=== PATIENT | female | born 1990 | race Caucasian/White ===

== ENCOUNTER 2016-11-03 16:11 | Inpatient (IN) | payer MEDICAID ==
[2016-11-04] MEDS ORDERED: Ampicillin 2 GM in Sodium Chloride 0.9% 100 ML IV ONE (07:56)
[2016-11-04] MEDS: Lactated Ringers 1,000 ML IV SCH ×2 (08:31→16:56)
[2016-11-04] MEDS ORDERED: Oxytocin 10 UNIT in Sodium Chloride 0.9% 1,000 ML IV SCH (08:45)
--- NOTE | 2016-11-04 09:16 | PN ---
DATE SEEN: 11/04/2016 SUBJECTIVE: This is a 26-year-old G4, P3, EDC is 11/09/2016 at 39+ weeks, comes in for induction. All her vital signs are stable. She is afebrile. heart tones are reactive in 130s to 140s. Cervix is 2, 50%, minus 2, head engaged, group B positive. ASSESSMENT: Induction, could be positive. PLAN: Ampicillin per protocol. Pitocin and AROM later if she decides to change the vaginal delivery. /[id number] PE/MODL
[2016-11-04] MEDS: Ampicillin 1 GM in Sodium Chloride 0.9% 50 ML IV SCH ×3 (12:21→21:14)
--- NOTE | 2016-11-04 13:15 | PN ---
DATE SEEN: 11/04/2016 TIME: 1228 hours. SUBJECTIVE: The patient is clover, on Pitocin 14 units at this time. Ampicillin is gone. OBJECTIVE: heart tones 140s and reactive. Cervix is 3, 50%, -2. ASSESSMENT: Induction of labor. Group B positive. PLAN: I did an AROM today, clear fluid, and copious amounts came out. No nuchal cord. Vaginal delivery anticipated. /[id number] PE/MODL
[2016-11-04] MEDS ORDERED: Nalbuphine 10 MG/1 ML Vial IVPUSH PRN ×2 (14:39→16:32)
[2016-11-04] MEDS ORDERED: Non-Formulary Medication 1 Each (Epinephrine [Epipen] 0.3 MG) IM PRN (14:39)
[2016-11-04] MEDS ORDERED: Scopolamine 1.5 MG Transdermal Patch TRDERM ONE (15:42)
[2016-11-04] MEDS ORDERED: Scopolamine 1.5 MG Transdermal Patch ONE (15:45)
[2016-11-04] MEDS ORDERED: fentaNYL 100 MCG/2 ML SDV ITHECAL ONE (15:45)
[2016-11-04] MEDS ORDERED: Ondansetron 4 MG/2 ML SDV IVPUSH ONE (15:45)
[2016-11-04] MEDS ORDERED: Morphine PF 10 MG/10 ML SDV ONE (15:45)
[2016-11-04] MEDS ORDERED: diphenhydrAMINE 50 MG/ML SDV IVPUSH PRN (16:32)
[2016-11-04] MEDS ORDERED: Scopolamine 1.5 MG Transdermal Patch TOP ONE (16:32)
[2016-11-04] MEDS ORDERED: Promethazine 6.25 MG in Sodium Chloride 0.9% 50 ML IV PRN (16:32)
[2016-11-04] MEDS ORDERED: ePHEDrine 50 MG/ML SDV IVPUSH PRN (16:32)
[2016-11-04] MEDS ORDERED: Naltrexone 50 MG Tab PO PRN ×2 (16:32→16:38)
[2016-11-04] MEDS ORDERED: Promethazine 12.5 MG in Sodium Chloride 0.9% 50 ML IV PRN (16:32)
[2016-11-04] MEDS ORDERED: Famotidine/Normal Saline 20 MG in Premix Bag 50 BAG IV PRN (16:32)
[2016-11-04] MEDS ORDERED: Ondansetron 4 MG/2 ML SDV IVPUSH PRN (16:32)
[2016-11-04] MEDS ORDERED: diphenhydrAMINE 50 MG/ML SDV IV PRN (16:32)
[2016-11-04] MEDS ORDERED: Naloxone 0.4 MG/ML SDV IVPUSH PRN (16:32)
[2016-11-04] MEDS ORDERED: Lactated Ringers 500 ML IV SCH ×2 (16:45)
--- NOTE | 2016-11-04 18:18 | PCM.DEL ---
L & D Note - General Info Date of Service: 11/04/16 - Delivery Note Labor: augmented by ARM Delivery Outcome: Livebirth Delivery Mode: Spontaneous Presentation: OA Nuchal cord: reduced (2) Prep: other Anesthesia Type: Intrathecal Amniotic Fluid Description: Clear Episiotomy Type: None Laceration: none Placenta: intact, spontaneous Cord: 3 vessels Resuscitation needed: No [place]: suctioned - Patient Data Vitals - most recent: Last Vital Signs Temp 97.9 F 11/04/16 12:45 Pulse 80 11/04/16 17:05 Resp 20 11/04/16 16:30 BP 123/57 L 11/04/16 17:05 Pulse Ox 100 11/04/16 16:30 Weight - most recent: 123 lb 12.8 oz I&O - last 24 hours: Intake & Output 11/04/16 11/04/16 11/04/16 06:59 14:59 22:59 Output Total 500 Balance -500 Med Orders - Current: Current Medications Acetaminophen/Codeine Phosphate (Tylenol With Codeine No.3 300mg/30mg) 1 tab PO Q4H PRN PRN Reason: Pain (moderate 4-6) Diphenhydramine HCl (Benadryl) 25 mg IVPUSH ASDIRECTED PRN PRN Reason: EXTRAPYRAMIDAL SIDE EFFECTS Diphenhydramine HCl (Benadryl) 25 mg IV ASDIRECTED PRN PRN Reason: PRURITUS Ephedrine Sulfate (Ephedrine Sulfate) 0 mg IVPUSH ASDIRECTED PRN PRN Reason: Hypotension Ampicillin Sodium 1 gm/ Sodium (Chloride) 50 mls @ 100 mls/hr IV Q4H KADE Last Admin: 11/04/16 16:04 Dose: 100 mls/hr Lactated Ringer's (Ringers, Lactated) 1,000 mls @ 125 mls/hr IV ASDIRECTED KADE Last Admin: 11/04/16 16:56 Dose: 125 mls/hr Oxytocin 10 unit/ Sodium (Chloride) 1,001 mls @ 12.01 mls/hr IV TITRATE KADE; 2 MUNITS/MIN PRN Reason: Protocol Last Titration: 11/04/16 14:05 Dose: 14 munits/min, 84.08 mls/hr Famotidine 20 mg/ Premix 50 mls @ 100 mls/hr IV ONETIME PRN PRN Reason: PRURITIS Lactated Ringer's (Ringers, Lactated) 500 mls @ 999 mls/hr IV .SEECOMMENT KADE Lactated Ringer's (Ringers, Lactated) 500 mls @ 999 mls/hr IV .BOLUS KADE Promethazine HCl 6.25 mg/ (Sodium Chloride) 50.25 mls @ 200 mls/hr IV Q4H PRN PRN Reason: Nausea/Vomiting Promethazine HCl 12.5 mg/ (Sodium Chloride) 50.5 mls @ 200 mls/hr IV Q4H PRN PRN Reason: Nausea/Vomiting Ibuprofen (Motrin) 800 mg PO Q8H COUNT INCLUDES THE [facility] Miscellaneous Information (Remove Patch) 1 ea TRDERM ONETIME ONE Stop: 11/05/16 18:01 Nalbuphine HCl (Nubain) 10 mg IVPUSH Q3H PRN PRN Reason: Pain Last Admin: 11/04/16 14:54 Dose: 10 mg Nalbuphine HCl (Nubain) 10 mg IVPUSH Q1H PRN PRN Reason: PRURITUS Naltrexone HCl (Naltrexone) 50 mg PO ASDIRECTED PRN PRN Reason: REVERSAL Ondansetron HCl (Zofran) 4 mg IVPUSH Q4H PRN PRN Reason: Nausea/Vomiting Multivit/Folic Acid/Iron (-U) 1 each PO DAILY COUNT INCLUDES THE [facility] Valacyclovir HCl (Valtrex) 500 mg PO BID KADE Discontinued Medications Ampicillin Sodium 2 gm/ Sodium (Chloride) 100 mls @ 200 mls/hr IV ONETIME ONE Stop: 11/04/16 08:25 Last Admin: 11/04/16 08:33 Dose: 200 mls/hr Naloxone HCl (Narcan) 0.1 mg IVPUSH .SEECOMMENT PRN PRN Reason: Respiratory Depression Stop: 11/04/16 16:33 Naltrexone HCl (Naltrexone) 25 mg PO ASDIRECTED PRN PRN Reason: REVERSAL Scopolamine (Transderm-Scop) 1.5 mg TRDERM ONETIME ONE Stop: 11/04/16 15:43 Last Admin: 11/04/16 15:46 Dose: 1.5 mg Scopolamine (Transderm-Scop) Confirm Administered Dose 1.5 mg .ROUTE .STK-MED ONE Stop: 11/04/16 15:46 Last Admin: 11/04/16 16:17 Dose: Not Given - Problem List & Annotations (1) Vaginal delivery SNOMED Code(s): 355660374 Code(s): O80 - ENCOUNTER FOR FULL-TERM UNCOMPLICATED DELIVERY Status: Acute Current Visit: No - Problem List Review Problem List Initiated/Reviewed/Updated: Yes - My Orders Last 24 Hours: My Active Orders 11/04/16 07:02 Admission Status [Patient Status] [ADT] Routine 11/04/16 08:15 Lactated Ringers [Ringers, Lactated] 1,000 ml IV ASDIRECTED 11/04/16 08:38 Communication Order [RC] ASDIRECTED Communication Order [RC] ASDIRECTED Communication Order [RC] ASDIRECTED Communication Order [RC] ASDIRECTED Notify Provider [RC] PRN Notify Provider [RC] STAT Vital Signs [RC] PER UNIT ROUTINE 11/04/16 08:45 Oxytocin [Pitocin] 10 unit Sodium Chloride 0.9% [Normal Saline] 1,000 ml IV TITRATE 11/04/16 12:00 Ampicillin 1 gm Sodium Chloride 0.9% [Normal Saline] 50 ml IV Q4H 11/04/16 12:32 Admission Status [Patient Status] [ADT] Routine 11/04/16 14:39 Nalbuphine [Nubain] 10 mg IVPUSH Q3H PRN 11/04/16 18:13 Patient Status [ADT] Routine May Shower [RC] ASDIRECTED Up ad Tabby [RC] ASDIRECTED Vital Signs [RC] PFP Acetaminophen/Codeine [Tylenol with Codeine No.3 300MG/30MG] 1 tab PO Q4H PRN Assess Lochia [WOMSER] Per Unit Routine Assess Uterine Involution [WOMSER] Per Unit Routine Breast Pump [WOMSER] Per Unit Routine Resuscitation Status Routine 11/04/16 18:14 Ice Therapy [OM.PC] Per Unit Routine Perineal Care [OM.PC] Per Unit Routine Peripheral IV Discontinue [OM.PC] Routine Sitz Bath [OM.PC] Per Unit Routine 11/04/16 18:15 Ibuprofen [Motrin] 800 mg PO Q8H 11/04/16 21:00 valACYclovir [Valtrex] 500 mg PO BID 11/04/16 Dinner Regular Diet [DIET] 11/05/16 05:11 HEMOGLOBIN/HEMATOCRIT,HH [HEME] AM 11/05/16 09:00 Vit/FA/Fe Fumarate [-U] 1 each PO DAILY 11/05/16 18:00 Remove Patch 1 ea ARISM ONETIME ONE - Plan Plan:: Normal orders. See orders.
[2016-11-04] MEDS: Ibuprofen 800 MG Tab PO SCH (18:28)
[2016-11-04] MEDS ORDERED: valACYclovir 500 MG Tab PO SCH (21:00)
[2016-11-05] MEDS: Ibuprofen 800 MG Tab PO SCH ×3 (02:22→18:00)
--- NOTE | 2016-11-05 08:15 | PCM.PN ---
- General Info Date of Service: 11/05/16 Admission Dx/Problem (Free Text): Mom without concerns. Vaginal bleeding slowing. Functional Status: Reports: pain controlled - Patient Data Vitals - most recent: Last Vital Signs Temp 98.0 F 11/04/16 22:35 Pulse 73 11/04/16 22:35 Resp 16 11/04/16 22:35 BP 96/45 L 11/04/16 22:35 Pulse Ox 98 11/04/16 22:35 Weight - most recent: 123 lb 12.8 oz I&O - last 24 hours: Intake & Output 11/04/16 11/05/16 11/05/16 22:59 06:59 14:59 Intake Total 1000 Balance 1000 Lab Results last 24 hrs: Laboratory Results - last 24 hr 11/05/16 Range/Units 06:40 Hgb 9.7 L (11.5-15.5) g/dL Hct 29.9 L (30.0-51.3) % Med Orders - Current: Current Medications Acetaminophen/Codeine Phosphate (Tylenol With Codeine No.3 300mg/30mg) 1 tab PO Q4H PRN PRN Reason: Pain (moderate 4-6) Diphenhydramine HCl (Benadryl) 25 mg IVPUSH ASDIRECTED PRN PRN Reason: EXTRAPYRAMIDAL SIDE EFFECTS Last Admin: 11/04/16 18:29 Dose: 25 mg Diphenhydramine HCl (Benadryl) 25 mg IV ASDIRECTED PRN PRN Reason: PRURITUS Lactated Ringer's (Ringers, Lactated) 1,000 mls @ 125 mls/hr IV ASDIRECTED KADE Last Admin: 11/04/16 16:56 Dose: 125 mls/hr Famotidine 20 mg/ Premix 50 mls @ 100 mls/hr IV ONETIME PRN PRN Reason: PRURITIS Promethazine HCl 6.25 mg/ (Sodium Chloride) 50.25 mls @ 200 mls/hr IV Q4H PRN PRN Reason: Nausea/Vomiting Promethazine HCl 12.5 mg/ (Sodium Chloride) 50.5 mls @ 200 mls/hr IV Q4H PRN PRN Reason: Nausea/Vomiting Ibuprofen (Motrin) 800 mg PO Q8H [facility] Last Admin: 11/05/16 02:22 Dose: 800 mg Miscellaneous Information (Remove Patch) 1 ea TRDERM ONETIME ONE Stop: 11/05/16 18:01 Nalbuphine HCl (Nubain) 10 mg IVPUSH Q3H PRN PRN Reason: Pain Last Admin: 11/04/16 14:54 Dose: 10 mg Nalbuphine HCl (Nubain) 10 mg IVPUSH Q1H PRN PRN Reason: PRURITUS Naltrexone HCl (Naltrexone) 50 mg PO ASDIRECTED PRN PRN Reason: REVERSAL Last Admin: 11/04/16 18:29 Dose: 50 mg Ondansetron HCl (Zofran) 4 mg IVPUSH Q4H PRN PRN Reason: Nausea/Vomiting Multivit/Folic Acid/Iron (-U) 1 each PO DAILY KADE Valacyclovir HCl (Valtrex) 500 mg PO BID KADE Last Admin: 11/04/16 21:21 Dose: 500 mg Discontinued Medications Ephedrine Sulfate (Ephedrine Sulfate) 0 mg IVPUSH ASDIRECTED PRN PRN Reason: Hypotension Ampicillin Sodium 1 gm/ Sodium (Chloride) 50 mls @ 100 mls/hr IV Q4H KADE Last Admin: 11/04/16 21:14 Dose: Not Given Ampicillin Sodium 2 gm/ Sodium (Chloride) 100 mls @ 200 mls/hr IV ONETIME ONE Stop: 11/04/16 08:25 Last Admin: 11/04/16 08:33 Dose: 200 mls/hr Oxytocin 10 unit/ Sodium (Chloride) 1,001 mls @ 12.01 mls/hr IV TITRATE KADE; 2 MUNITS/MIN PRN Reason: Protocol Last Titration: 11/04/16 14:05 Dose: 14 munits/min, 84.08 mls/hr Lactated Ringer's (Ringers, Lactated) 500 mls @ 999 mls/hr IV .SEECOMMENT KADE Lactated Ringer's (Ringers, Lactated) 500 mls @ 999 mls/hr IV .BOLUS KADE Naloxone HCl (Narcan) 0.1 mg IVPUSH .SEECOMMENT PRN PRN Reason: Respiratory Depression Stop: 11/04/16 16:33 Naltrexone HCl (Naltrexone) 25 mg PO ASDIRECTED PRN PRN Reason: REVERSAL Scopolamine (Transderm-Scop) 1.5 mg TRDERM ONETIME ONE Stop: 11/04/16 15:43 Last Admin: 11/04/16 15:46 Dose: 1.5 mg Scopolamine (Transderm-Scop) Confirm Administered Dose 1.5 mg .ROUTE .STK-MED ONE Stop: 11/04/16 15:46 Last Admin: 11/04/16 16:17 Dose: Not Given - Exam General: alert, oriented, cooperative Neck: supple Lungs: Normal respiratory effort Abdomen: other (Fundus firm) Extremities: no edema - Problem List & Annotations (1) Vaginal delivery SNOMED Code(s): 099769809 Code(s): O80 - ENCOUNTER FOR FULL-TERM UNCOMPLICATED DELIVERY Status: Acute Current Visit: No - Problem List Review Problem List Initiated/Reviewed/Updated: Yes - My Orders Last 24 Hours: My Active Orders 11/04/16 08:15 Lactated Ringers [Ringers, Lactated] 1,000 ml IV ASDIRECTED 11/04/16 12:32 Admission Status [Patient Status] [ADT] Routine 11/04/16 14:39 Nalbuphine [Nubain] 10 mg IVPUSH Q3H PRN 11/04/16 18:13 Patient Status [ADT] Routine May Shower [RC] ASDIRECTED Up ad Tabby [RC] ASDIRECTED Vital Signs [RC] PFP Acetaminophen/Codeine [Tylenol with Codeine No.3 300MG/30MG] 1 tab PO Q4H PRN Assess Lochia [WOMSER] Per Unit Routine Assess Uterine Involution [WOMSER] Per Unit Routine Breast Pump [WOMSER] Per Unit Routine Resuscitation Status Routine 11/04/16 18:14 Ice Therapy [OM.PC] Per Unit Routine Perineal Care [OM.PC] Per Unit Routine Peripheral IV Discontinue [OM.PC] Routine Sitz Bath [OM.PC] Per Unit Routine 11/04/16 18:15 Ibuprofen [Motrin] 800 mg PO Q8H 11/04/16 21:00 valACYclovir [Valtrex] 500 mg PO BID 11/04/16 Dinner Regular Diet [DIET] 11/05/16 09:00 Vit/FA/Fe Fumarate [-U] 1 each PO DAILY 11/05/16 18:00 Remove Patch 1 ea TRDERM ONETIME ONE - Plan Plan:: Start Fe 1 x a day. Stop Valtrex. Continue current care.
[2016-11-05] MEDS: Iron Polysaccharides Complex 150 MG Cap PO SCH (10:18)
[2016-11-05] MEDS: Prenatal Multivitamin with Calcium/Folic Acid/Fe Fumarate Cap PO SCH (10:18)
[2016-11-05] MEDS: Acetaminophen/Codeine 300-30 MG Tab PO PRN ×2 (11:26→16:47)
[2016-11-06] MEDS: Acetaminophen/Codeine 300-30 MG Tab PO PRN ×2 (00:59→07:57)
[2016-11-06] MEDS: Ibuprofen 800 MG Tab PO SCH ×2 (02:25→11:07)
[2016-11-06] MEDS: Iron Polysaccharides Complex 150 MG Cap PO SCH ×2 (07:56→09:18)
[2016-11-06] MEDS: Prenatal Multivitamin with Calcium/Folic Acid/Fe Fumarate Cap PO SCH ×2 (07:57→09:19)
--- NOTE | 2016-11-06 08:29 | PCM.PNPP ---
- General Info Date of Service: 11/06/16 Admission Dx/Problem (Free Text): Patient without concerns. Bleeding slowing. She states her Klosterman has come in. - Patient Data Vital Signs - most recent: Last Vital Signs Temp 98.3 F 11/06/16 01:00 Pulse 55 L 11/06/16 01:00 Resp 18 11/06/16 01:00 BP 91/53 L 11/06/16 01:00 Pulse Ox 97 11/06/16 01:00 Weight - most recent: 123 lb 12.8 oz Med Orders - Current: Current Medications Acetaminophen/Codeine Phosphate (Tylenol With Codeine No.3 300mg/30mg) 1 tab PO Q4H PRN PRN Reason: Pain (moderate 4-6) Last Admin: 11/06/16 07:57 Dose: 1 tab Ibuprofen (Motrin) 800 mg PO Q8H [facility] Last Admin: 11/06/16 02:25 Dose: 800 mg Polysaccharide Iron Complex (Ferrex 150) 150 mg PO DAILY [facility] Last Admin: 11/06/16 07:56 Dose: 150 mg Multivit/Folic Acid/Iron (-U) 1 each PO DAILY [facility] Last Admin: 11/06/16 07:57 Dose: 1 each Discontinued Medications Diphenhydramine HCl (Benadryl) 25 mg IVPUSH ASDIRECTED PRN PRN Reason: EXTRAPYRAMIDAL SIDE EFFECTS Last Admin: 11/04/16 18:29 Dose: 25 mg Diphenhydramine HCl (Benadryl) 25 mg IV ASDIRECTED PRN PRN Reason: PRURITUS Ephedrine Sulfate (Ephedrine Sulfate) 0 mg IVPUSH ASDIRECTED PRN PRN Reason: Hypotension Ampicillin Sodium 1 gm/ Sodium (Chloride) 50 mls @ 100 mls/hr IV Q4H [facility] Last Admin: 11/04/16 21:14 Dose: Not Given Ampicillin Sodium 2 gm/ Sodium (Chloride) 100 mls @ 200 mls/hr IV ONETIME ONE Stop: 11/04/16 08:25 Last Admin: 11/04/16 08:33 Dose: 200 mls/hr Lactated Ringer's (Ringers, Lactated) 1,000 mls @ 125 mls/hr IV ASDIRECTED [facility] Last Admin: 11/04/16 16:56 Dose: 125 mls/hr Oxytocin 10 unit/ Sodium (Chloride) 1,001 mls @ 12.01 mls/hr IV TITRATE KADE; 2 MUNITS/MIN PRN Reason: Protocol Last Titration: 11/04/16 14:05 Dose: 14 munits/min, 84.08 mls/hr Famotidine 20 mg/ Premix 50 mls @ 100 mls/hr IV ONETIME PRN PRN Reason: PRURITIS Lactated Ringer's (Ringers, Lactated) 500 mls @ 999 mls/hr IV .SEECOMMENT KADE Lactated Ringer's (Ringers, Lactated) 500 mls @ 999 mls/hr IV .BOLUS KADE Promethazine HCl 6.25 mg/ (Sodium Chloride) 50.25 mls @ 200 mls/hr IV Q4H PRN PRN Reason: Nausea/Vomiting Promethazine HCl 12.5 mg/ (Sodium Chloride) 50.5 mls @ 200 mls/hr IV Q4H PRN PRN Reason: Nausea/Vomiting Miscellaneous Information (Remove Patch) 1 ea TRDERM ONETIME ONE Stop: 11/05/16 18:01 Last Admin: 11/05/16 18:01 Dose: 1 ea Nalbuphine HCl (Nubain) 10 mg IVPUSH Q3H PRN PRN Reason: Pain Last Admin: 11/04/16 14:54 Dose: 10 mg Nalbuphine HCl (Nubain) 10 mg IVPUSH Q1H PRN PRN Reason: PRURITUS Naloxone HCl (Narcan) 0.1 mg IVPUSH .SEECOMMENT PRN PRN Reason: Respiratory Depression Stop: 11/04/16 16:33 Naltrexone HCl (Naltrexone) 25 mg PO ASDIRECTED PRN PRN Reason: REVERSAL Naltrexone HCl (Naltrexone) 50 mg PO ASDIRECTED PRN PRN Reason: REVERSAL Last Admin: 11/04/16 18:29 Dose: 50 mg Ondansetron HCl (Zofran) 4 mg IVPUSH Q4H PRN PRN Reason: Nausea/Vomiting Scopolamine (Transderm-Scop) 1.5 mg TRDERM ONETIME ONE Stop: 11/04/16 15:43 Last Admin: 11/04/16 15:46 Dose: 1.5 mg Scopolamine (Transderm-Scop) Confirm Administered Dose 1.5 mg .ROUTE .STK-MED ONE Stop: 11/04/16 15:46 Last Admin: 11/04/16 16:17 Dose: Not Given Valacyclovir HCl (Valtrex) 500 mg PO BID KADE Last Admin: 11/04/16 21:21 Dose: 500 mg - Infant Interaction Support Person: - Recovery Exam Fundal Tone: Firm Fundal Level: At Umbilicus Fundal Placement: Midline Lochia Amount: Moderate Lochia Color: Rubra/Red Perineum Description: Intact, Minimal Bruising/Swelling Episiotomy/Laceration: None Bladder Status: Voiding Urinary Elimination: Voided - Exam General: alert, oriented, cooperative Neck: supple Lungs: Normal respiratory effort Abdomen: other (Fundus firm) Extremities: no edema - Problem List & Annotations (1) Vaginal delivery SNOMED Code(s): 013501900 Code(s): O80 - ENCOUNTER FOR FULL-TERM UNCOMPLICATED DELIVERY Status: Acute Current Visit: No - Problem List Review Problem List Initiated/Reviewed/Updated: Yes - My Orders Last 24 Hours: My Active Orders 11/05/16 09:00 Iron Polysaccharides Complex [Ferrex 150] 150 mg PO DAILY Vit/FA/Fe Fumarate [-U] 1 each PO DAILY 11/06/16 08:14 Ready for Discharge [RC] PER UNIT ROUTINE - Plan Plan:: Discharged to home
--- NOTE | 2016-11-06 08:31 | PCM.DCSUM1 ---
Discharge Summary - Hospital Course Free Text/Narrative:: Patient delivered a 6 lbs. 13 oz. baby girl straight OA position with 2 nuchal cords. See delivery note. Post day one hemoglobin was just above 9. So I started. She had a couple clots. Bleeding was slowing. She was taken some Tylenol No. 3 and ibuprofen. But feeling very little pain. Discharge date doing well without any concerns. Clostrum has come in. Brief History: This is a 26-year-old 39+ weeks comes in for induction. Group be positive. She has a history of herpes and has been treated with Valtrex and she is asymptomatic at this time. - Discharge Data Discharge Date: 11/06/16 Discharge Disposition: Home, Self-Care 01 Condition: Good - Discharge Diagnosis/Problem(s) (1) Vaginal delivery SNOMED Code(s): 987962135 ICD Code: O80 - ENCOUNTER FOR FULL-TERM UNCOMPLICATED DELIVERY Status: Acute Current Visit: No - Patient Instructions Diet: Regular Diet as Tolerated Activity: As Tolerated Driving: May Drive Today Showering/Bathing: May Shower Notify Provider of: Fever, Increased Pain, Swelling and Redness, Drainage Other/Special Instructions: 1. Recheck in 6 weeks for check. - Discharge Plan Prescriptions/Med Rec: Iron Polysaccharides Complex [Ferrex 150] 150 mg PO DAILY #30 cap Home Medications: Home Meds Vit/FA/Fe Fumarate [-U] 1 each PO DAILY #0 cap 06/28/13 [Rx] Iron Polysaccharides Complex [Ferrex 150] 150 mg PO DAILY #30 cap 11/06/16 [Rx] Patient Handouts: , and Inducing , Exclusive , Vaginal Delivery, Depression and Baby Blues , Home Care Instructions for Mom, Vaginal Delivery, Care After, Challenges and Solutions, Care After Vaginal Delivery, Eating Plan for Women - Discharge Summary/Plan Comment DC Time >30 min.: No - Patient Data Vitals - Most Recent: Last Vital Signs Temp 98.3 F 11/06/16 01:00 Pulse 55 L 11/06/16 01:00 Resp 18 11/06/16 01:00 BP 91/53 L 11/06/16 01:00 Pulse Ox 97 11/06/16 01:00 Weight - Most Recent: 123 lb 12.8 oz Med Orders - Current: Current Medications Acetaminophen/Codeine Phosphate (Tylenol With Codeine No.3 300mg/30mg) 1 tab PO Q4H PRN PRN Reason: Pain (moderate 4-6) Last Admin: 11/06/16 07:57 Dose: 1 tab Ibuprofen (Motrin) 800 mg PO Q8H [facility] Last Admin: 11/06/16 02:25 Dose: 800 mg Polysaccharide Iron Complex (Ferrex 150) 150 mg PO DAILY [facility] Last Admin: 11/06/16 07:56 Dose: 150 mg Multivit/Folic Acid/Iron (-U) 1 each PO DAILY [facility] Last Admin: 11/06/16 07:57 Dose: 1 each Discontinued Medications Diphenhydramine HCl (Benadryl) 25 mg IVPUSH ASDIRECTED PRN PRN Reason: EXTRAPYRAMIDAL SIDE EFFECTS Last Admin: 11/04/16 18:29 Dose: 25 mg Diphenhydramine HCl (Benadryl) 25 mg IV ASDIRECTED PRN PRN Reason: PRURITUS Ephedrine Sulfate (Ephedrine Sulfate) 0 mg IVPUSH ASDIRECTED PRN PRN Reason: Hypotension Ampicillin Sodium 1 gm/ Sodium (Chloride) 50 mls @ 100 mls/hr IV Q4H [facility] Last Admin: 11/04/16 21:14 Dose: Not Given Ampicillin Sodium 2 gm/ Sodium (Chloride) 100 mls @ 200 mls/hr IV ONETIME ONE Stop: 11/04/16 08:25 Last Admin: 11/04/16 08:33 Dose: 200 mls/hr Lactated Ringer's (Ringers, Lactated) 1,000 mls @ 125 mls/hr IV ASDIRECTED [facility] Last Admin: 11/04/16 16:56 Dose: 125 mls/hr Oxytocin 10 unit/ Sodium (Chloride) 1,001 mls @ 12.01 mls/hr IV TITRATE KADE; 2 MUNITS/MIN PRN Reason: Protocol Last Titration: 11/04/16 14:05 Dose: 14 munits/min, 84.08 mls/hr Famotidine 20 mg/ Premix 50 mls @ 100 mls/hr IV ONETIME PRN PRN Reason: PRURITIS Lactated Ringer's (Ringers, Lactated) 500 mls @ 999 mls/hr IV .SEECOMMENT [facility] Lactated Ringer's (Ringers, Lactated) 500 mls @ 999 mls/hr IV .BOLUS KADE Promethazine HCl 6.25 mg/ (Sodium Chloride) 50.25 mls @ 200 mls/hr IV Q4H PRN PRN Reason: Nausea/Vomiting Promethazine HCl 12.5 mg/ (Sodium Chloride) 50.5 mls @ 200 mls/hr IV Q4H PRN PRN Reason: Nausea/Vomiting Miscellaneous Information (Remove Patch) 1 ea TRDERM ONETIME ONE Stop: 11/05/16 18:01 Last Admin: 11/05/16 18:01 Dose: 1 ea Nalbuphine HCl (Nubain) 10 mg IVPUSH Q3H PRN PRN Reason: Pain Last Admin: 11/04/16 14:54 Dose: 10 mg Nalbuphine HCl (Nubain) 10 mg IVPUSH Q1H PRN PRN Reason: PRURITUS Naloxone HCl (Narcan) 0.1 mg IVPUSH .SEECOMMENT PRN PRN Reason: Respiratory Depression Stop: 11/04/16 16:33 Naltrexone HCl (Naltrexone) 25 mg PO ASDIRECTED PRN PRN Reason: REVERSAL Naltrexone HCl (Naltrexone) 50 mg PO ASDIRECTED PRN PRN Reason: REVERSAL Last Admin: 11/04/16 18:29 Dose: 50 mg Ondansetron HCl (Zofran) 4 mg IVPUSH Q4H PRN PRN Reason: Nausea/Vomiting Scopolamine (Transderm-Scop) 1.5 mg TRDERM ONETIME ONE Stop: 11/04/16 15:43 Last Admin: 11/04/16 15:46 Dose: 1.5 mg Scopolamine (Transderm-Scop) Confirm Administered Dose 1.5 mg .ROUTE .STK-MED ONE Stop: 11/04/16 15:46 Last Admin: 11/04/16 16:17 Dose: Not Given Valacyclovir HCl (Valtrex) 500 mg PO BID [facility] Last Admin: 11/04/16 21:21 Dose: 500 mg *Q Meaningful Use (DIS) - VTE *Q VTE Criteria *Q: - Stroke *Q Stroke Criteria *Q: - AMI *Q AMI Criteria *Q:
[2016-11-06 09:17] VITALS: BP 96/60
== END 2016-11-06 12:00 | disposition home or self-care (01) | DRG 560 ==
LOC: FB.OB 11-04 06:54 → OBSVTOIN 11-04 12:32 → FB.OB 11-04 12:32
PROVIDERS: ADMIT Family Medicine; ATTEND Family Medicine
PROC: 10E0XZZ Delivery of Products of Conception, External Approach (ICD-10-PCS; principal; 2016-11-04)
PROC: 10907ZC Drainage of Amniotic Fluid, Therapeutic from Products of Conception, Via Natural or Artificial Opening (ICD-10-PCS; 2016-11-04)
PROC: 3E033VJ Introduction of Other Hormone into Peripheral Vein, Percutaneous Approach (ICD-10-PCS; 2016-11-04)
PROC: 00HU33Z Insertion of Infusion Device into Spinal Canal, Percutaneous Approach (ICD-10-PCS; 2016-11-04)
DX: O69.81X0 Labor and delivery complicated by cord around neck, without compression, not applicable or unspecified (principal); O99.824 Streptococcus B carrier state complicating childbirth; Z3A.39 39 weeks gestation of pregnancy; Z37.0 Single live birth; Z87.898 Personal history of other specified conditions
CPT/HCPCS: 36415; 85014; 85018; A9270-GY; J0290; J1200; J2270; J2300; J2405; J2590; J3010; J7030; J7040; J7050; J7120